=== PATIENT | female | born 1955 ===

== ENCOUNTER 2025-01-01 11:58 | Outpatient (CLI) | payer MEDICARE, OTHER, SELFPAY ==
--- NOTE | ~2025-01-01 | XR_ITS ---
EXAMINATION: XR hip LT min 2V, 01/01/2025 12:10 CDT HISTORY: left hip pain x 1 week, fell last week COMPARISON: No comparisons available. Findings: No acute fracture or malalignment. No significant degenerative changes. Soft tissues unremarkable. Impression: No acute fracture or malalignment. Reviewed, dictated and finalized at location A. Impression: No acute fracture or malalignment.
== END 2025-01-01 11:59 | disposition home or self-care (01) ==
DX: M25.552 Pain in left hip (principal)
CPT/HCPCS: 73502